=== PATIENT | male | born 1970 | race Caucasian/White ===

== ENCOUNTER → 2017-09-18 | Outpatient (CLI) | payer BC ==
--- NOTE | 2017-09-18 15:22 | KCIC ---
MRI Lumbar Spine without contrast History: Muscle weakness, lumbar radiculopathy, paresthesias, lower extremity numbness since 2013 Technique: Multiplanar, multi sequential noncontrast MR imaging was performed of the lumbar spine. Contrast: None Comparison: None Findings: Lumbar vertebral body stature is preserved. There is mild degenerative disc disease greater posteriorly at L5-S1 and mild disc desiccation L3-4. AP alignment is adequate. Conus terminates at T12-L1. L3-L4: Spinal canal is adequate. There is minimal disc osteophyte complex in the inferior right neural foramen, very minimal narrowing right neural foramen distally. Left neural foramen is adequate. L4-L5: Spinal canal and neural foramina are adequate. L5-S1: Neural foramina and spinal canal are adequate. There is minimal posterior protrusion without neural impingement. There is prominence of epidural fat circumferentially, limited preserved subarachnoid space. Impression: 1. There is no significant lumbar spinal stenosis or neural foramina compromise. There is minimal narrowing of the inferior right L3-4 neural foramen. There is mild degenerative disc disease at L5-S1, mild disc desiccation L3-4. 2. Epidural lipomatosis results in near complete effacement of the subarachnoid space at L5-S1 extending into the sacrum. Electronically signed by: Artur Kendall MD (09/18/2017 3:19 PM) [id number]
== END | disposition home or self-care (01) ==
LOC: KCIC MRI 14:27
PROVIDERS: ATTEND Psychiatry & Neurology Neurology
DX: M51.16 Intervertebral disc disorders with radiculopathy, lumbar region (principal); E88.2 Lipomatosis, not elsewhere classified; M51.37 Other intervertebral disc degeneration, lumbosacral region
CPT/HCPCS: 72148

== ENCOUNTER → 2017-12-12 | Outpatient (CLI) | payer BC | END | disposition home or self-care (01) | LOC: KCIC MRI 07:41 | DX: M47.892 Other spondylosis, cervical region (principal); M25.78 Osteophyte, vertebrae; M46.02 Spinal enthesopathy, cervical region | CPT/HCPCS: 72141 ==

== ENCOUNTER → 2018-01-02 | Outpatient (CLI) | payer BC | END | disposition home or self-care (01) | LOC: KCIC MRI 08:44 | DX: M51.24 Other intervertebral disc displacement, thoracic region (principal); M25.78 Osteophyte, vertebrae | CPT/HCPCS: 72146 ==

== ENCOUNTER → 2018-01-08 | Outpatient (CLI) | payer BC ==
[~2018-01-08] MED LIST: IOHEXOL 180 MG/ML 10 ML VIAL.; methylPREDNISolone ACETATE 40 MG/ML VIAL.; methylPREDNISolone ACETATE 80 MG/ML VIAL.
== END ==
LOC: PNCL 12:56
DX: M51.16 Intervertebral disc disorders with radiculopathy, lumbar region (principal); M79.605 Pain in left leg; M79.604 Pain in right leg; I10 Essential (primary) hypertension; Z88.0 Allergy status to penicillin; J45.909 Unspecified asthma, uncomplicated
CPT/HCPCS: 62323; J1030; J1040; Q9965

== ENCOUNTER → 2018-01-22 | Outpatient (CLI) | payer BC | LOC: PNCL 08:13 | DX: M50.123 Cervical disc disorder at C6-C7 level with radiculopathy (principal); Z88.0 Allergy status to penicillin; I10 Essential (primary) hypertension; J45.909 Unspecified asthma, uncomplicated | CPT/HCPCS: 62321; J1030; J1040; Q9965 ==

== ENCOUNTER → 2018-04-23 | Outpatient (CLI) | payer BC | END | disposition home or self-care (01) | LOC: MRI 07:54 | DX: M51.26 Other intervertebral disc displacement, lumbar region (principal); M51.37 Other intervertebral disc degeneration, lumbosacral region | CPT/HCPCS: 72148 ==